=== PATIENT | female | born 1935 | race Caucasian/White ===

== ENCOUNTER 2020-10-27 02:07 | Inpatient (IN) ==
[2020-10-27 03:07] LABS: BUN/Creatinine Ratio 28 (6-26); Blood Urea Nitrogen 54 mg/dL (8-23); Calcium 9.3 mg/dL (8.6-10.3); Carbon Dioxide 28 mEq/L (23-29); Chloride 100 mEq/L (98-107); Glucose 104 mg/dL (70-105); Osmolality,Calculated 301 (280-300); Potassium 5.5 mEq/L (3.5-5.1); Sodium 138 mEq/L (136-145); eGFR For African Americans 30 (> 60); eGFR For Non-African Americans 25 (> 60)
[2020-10-27 03:08] LABS: Troponin I < 0.03 ng/mL (< 0.04)
[2020-10-27 03:36] LABS: Basophils % 0.5 %; Eosinophils # 0.4 K/mcL (0.0-0.6); Eosinophils % 4.4 %; Hematocrit 31.6 % (35.3-44.9); Hemoglobin 10.1 g/dL (11.5-15.4); Immature Granulocytes % 0.2 % (0-4); Lymphocytes # 1.2 K/mcL (0.6-4.6); Lymphocytes % 14.2 %; Mean Corpuscular Hemoglobin 29.1 pg (28.0-33.3); Mean Corpuscular Volume 91.1 fL (83.0-100.0); Mean Platelet Volume 10.7 fL (9.4-12.4); Monocytes # 0.9 K/mcL (0.0-1.3); Monocytes % 11.4 %; Neutrophils # 5.7 K/mcL (1.6-8.9); Platelet Count 179 K/mcL (140-400); Red Blood Count 3.47 M/mcL (3.82-4.97); Red Cell Distribution Width 13.8 % (11.5-14.5); Segmented Neutrophils % 69.3 %; White Blood Count 8.2 K/mcL (4.3-11.1)
[2020-10-27] MEDS ORDERED: *HR* Dextrose 50 % in Water (Vial) 50 ML VIAL IVP ONE (04:06)
[2020-10-27] MEDS ORDERED: Insulin Regular, Human 100 UNIT/ML SUBQ ONE (04:07)
[2020-10-27] MEDS ORDERED: Calcium Gluconate 1gm/50mL 1 GM/50 ML BAG IVPB ONE (04:08)
[2020-10-27] MEDS ORDERED: 0.9 % Sodium Chloride 1,000 ML IVC ONE (04:08)
[2020-10-27] MEDS: Azithromycin 500 MG in 0.9 % Sodium Chloride 250 ML IVPB ONE ×2 (04:42→06:58)
[2020-10-27] MEDS: cefTRIAXone 1,000 MG in 0.9 % Sodium Chloride Mini Bag 100 ML IVPB ONE (04:43)
[2020-10-27] MEDS ORDERED: Naloxone 0.4 MG/ML INJ IVP PRN (06:27)
[2020-10-27] MEDS ORDERED: cefTRIAXone 1,000 MG in Water for inj. (sterile) 10 ML IVP SCH ×2 (08:00→09:00)
[2020-10-27] MEDS: Piperacillin/Tazobactam 3.375 GM in 0.9 % Sodium Chloride Mini Bag 100 ML IVPB SCH ×2 (09:06→17:22)
[2020-10-27 11:28] LABS: Calcium 8.9 mg/dL (8.6-10.3)
[2020-10-27] MEDS ORDERED: Acetaminophen 325 MG TABLET PO PRN (14:56)
[2020-10-27] MEDS ORDERED: E-Z-HD (BARIUM SULF) SUSPENSION PO ONE (15:09)
[2020-10-27] MEDS ORDERED: E-Z-PAQUE (BARIUM SULF) SUSP 1 BOTTLE PO ONE (15:09)
[2020-10-27] MEDS: Ipratropium/Albuterol Neb 3 ML IH SCH ×3 (15:38→23:21)
[2020-10-27] MEDS: Divalproex Sodium 125 MG Sprinkle Capsule (DR) PO SCH ×2 (16:07→20:28)
[2020-10-27] MEDS: Furosemide 40 MG TABLET PO SCH (16:08)
[2020-10-27] MEDS: hydrOXYzine pamoate 25 MG CAPSULE PO SCH (20:27)
[2020-10-28] MEDS: Piperacillin/Tazobactam 3.375 GM in 0.9 % Sodium Chloride Mini Bag 100 ML IVPB SCH ×3 (01:11→17:10)
[2020-10-28] MEDS: Ipratropium/Albuterol Neb 3 ML IH SCH ×6 (03:52→23:24)
[2020-10-28 06:44] LABS: Calcium 8.8 mg/dL (8.6-10.3)
[2020-10-28 06:45] LABS: Basophils % 0.3 %; Eosinophils % 0.2 %; Hematocrit 27.1 % (35.3-44.9); Immature Granulocytes % 0.4 % (0-4); Lymphocytes # 1.7 K/mcL (0.6-4.6); Lymphocytes % 18.9 %; Mean Corpuscular Hemoglobin 28.2 pg (28.0-33.3); Mean Corpuscular Volume 90.9 fL (83.0-100.0); Mean Platelet Volume 11.9 fL (9.4-12.4); Monocytes # 1.2 K/mcL (0.0-1.3); Monocytes % 12.8 %; Neutrophils # 6.1 K/mcL (1.6-8.9); Platelet Count 125 K/mcL (140-400); Red Blood Count 2.98 M/mcL (3.82-4.97); Red Cell Distribution Width 14.2 % (11.5-14.5); Segmented Neutrophils % 67.4 %; White Blood Count 9.1 K/mcL (4.3-11.1)
[2020-10-28 06:46] LABS: Hemoglobin 8.4 g/dL (11.5-15.4)
[2020-10-28] MEDS ORDERED: Azithromycin 500 MG in 0.9 % Sodium Chloride 250 ML IVPB SCH (07:00)
[2020-10-28] MEDS: cefTRIAXone 1,000 MG in 0.9 % Sodium Chloride Mini Bag 100 ML IVPB ONE (07:27)
[2020-10-28] MEDS: Aspirin Enteric Coated 81 MG Tablet PO SCH (08:11)
[2020-10-28] MEDS: hydrOXYzine pamoate 25 MG CAPSULE PO SCH ×2 (08:11→22:34)
[2020-10-28] MEDS: amLODIPine 5 MG TABLET PO SCH (08:11)
[2020-10-28] MEDS: Furosemide 40 MG TABLET PO SCH (08:12)
[2020-10-28] MEDS: Folic Acid 1 MG TABLET PO SCH (08:12)
[2020-10-28] MEDS: Divalproex Sodium 125 MG Sprinkle Capsule (DR) PO SCH ×3 (08:12→22:34)
[2020-10-28] MEDS: MOM Conc 10 ML UD.LIQ PO SCH (08:13)
[2020-10-28] MEDS: Fluticasone Propionate Nasal 50 MCG/SPRAY BOTTLE NS SCH (08:13)
[2020-10-28] MEDS ORDERED: cefTRIAXone 1,000 MG in 0.9 % Sodium Chloride Mini Bag 100 ML IVPB SCH (09:00)
[2020-10-28 12:09] LABS: Adenovirus Not Detected (Not Detect); Bordetella Pertussis Not Detected (Not Detect); Chlamydophila pneumoniae Not Detected (Not Detect); Coronavirus 229E Not Detected (Not Detect); Coronavirus HKU1 Not Detected (Not Detect); Coronavirus NL63 Not Detected (Not Detect); Coronavirus OC43 Not Detected (Not Detect); Human Metapneumovirus Not Detected (Not Detect); Human Rhinovirus/Enterovirus DETECTED (Not Detect); Influenza A Subtype 2009 H1 Not Detected (Not Detect); Influenza B Not Detected (Not Detect); Mycoplasma pneumoniae Not Detected (Not Detect); Parainfluenza Virus 1 Not Detected (Not Detect); Parainfluenza Virus 2 Not Detected (Not Detect); Parainfluenza Virus 3 Not Detected (Not Detect); Parainfluenza Virus 4 Not Detected (Not Detect); Respiratory Syncytial Virus Not Detected (Not Detect); SARS-CoV-2 Not Detected (Not Detect)
[2020-10-28 12:21] LABS: Hematocrit 27.6 % (35.3-44.9); Hemoglobin 8.8 g/dL (11.5-15.4)
[2020-10-29] MEDS: Piperacillin/Tazobactam 3.375 GM in 0.9 % Sodium Chloride Mini Bag 100 ML IVPB SCH ×3 (01:33→21:25)
[2020-10-29 02:04] LABS: Basophils % 0.4 %; Eosinophils # 0.2 K/mcL (0.0-0.6); Eosinophils % 2.2 %; Hematocrit 28.5 % (35.3-44.9); Hemoglobin 8.6 g/dL (11.5-15.4); Immature Granulocytes % 0.3 % (0-4); Lymphocytes # 1.7 K/mcL (0.6-4.6); Lymphocytes % 22.5 %; Mean Corpuscular HGB Conc 30.2 g/dL (31.6-35.5); Mean Corpuscular Hemoglobin 27.8 pg (28.0-33.3); Mean Corpuscular Volume 92.2 fL (83.0-100.0); Mean Platelet Volume 10.8 fL (9.4-12.4); Monocytes # 0.9 K/mcL (0.0-1.3); Monocytes % 11.4 %; Neutrophils # 4.7 K/mcL (1.6-8.9); Platelet Count 139 K/mcL (140-400); Red Blood Count 3.09 M/mcL (3.82-4.97); Red Cell Distribution Width 14.6 % (11.5-14.5); Segmented Neutrophils % 63.2 %; White Blood Count 7.4 K/mcL (4.3-11.1)
[2020-10-29 02:05] LABS: VBG HCO3 27 mEq/L (21-27); VBG PCO2 41 mmHg (41-51); VBG PH 7.43 pH Units (7.32-7.42); VBG PO2 65 mmHg (25-50)
[2020-10-29 02:22] LABS: Calcium 8.9 mg/dL (8.6-10.3); Potassium 4.3 mEq/L (3.5-5.1)
[2020-10-29] MEDS: Ipratropium/Albuterol Neb 3 ML IH SCH ×6 (03:59→23:03)
[2020-10-29] MEDS: Divalproex Sodium 125 MG Sprinkle Capsule (DR) PO SCH ×3 (08:41→21:25)
[2020-10-29] MEDS: MOM Conc 10 ML UD.LIQ PO SCH (08:41)
[2020-10-29] MEDS: Aspirin Enteric Coated 81 MG Tablet PO SCH (08:42)
[2020-10-29] MEDS: amLODIPine 5 MG TABLET PO SCH (08:42)
[2020-10-29] MEDS: hydrOXYzine pamoate 25 MG CAPSULE PO SCH ×2 (08:42→21:25)
[2020-10-29] MEDS: Folic Acid 1 MG TABLET PO SCH (08:42)
[2020-10-29] MEDS: Furosemide 40 MG TABLET PO SCH (08:42)
[2020-10-29] MEDS: Fluticasone Propionate Nasal 50 MCG/SPRAY BOTTLE NS SCH (08:44)
[2020-10-29 09:25] LABS: Bilirubin,Urine Negative (Negative); Blood,Urine Negative (Negative); Clarity,Urine Clear (Clear); Color,Urine Light-Yellow (Yellow); Glucose,Urine (UA) Normal (Normal); Ketones,Urine Negative (Negative); Leukocyte Esterase,Urine Negative (Negative); Nitrite,Urine Negative (Negative); Protein,Urine Negative (Neg-Trace); Specific Gravity,Urine 1.017 (1.010-1.025); Urobilinogen,Urine Normal (Normal)
[2020-10-30] MEDS: Ipratropium/Albuterol Neb 3 ML IH SCH ×6 (04:06→23:41)
[2020-10-30 07:21] LABS: Basophils % 0.3 %; Eosinophils # 0.4 K/mcL (0.0-0.6); Eosinophils % 6.6 %; Hematocrit 27.9 % (35.3-44.9); Hemoglobin 8.6 g/dL (11.5-15.4); Immature Granulocytes % 0.3 % (0-4); Lymphocytes # 1.6 K/mcL (0.6-4.6); Lymphocytes % 25.1 %; Mean Corpuscular HGB Conc 30.8 g/dL (31.6-35.5); Mean Corpuscular Hemoglobin 28.6 pg (28.0-33.3); Mean Corpuscular Volume 92.7 fL (83.0-100.0); Mean Platelet Volume 11.2 fL (9.4-12.4); Monocytes # 0.5 K/mcL (0.0-1.3); Monocytes % 8.4 %; Neutrophils # 3.8 K/mcL (1.6-8.9); Platelet Count 149 K/mcL (140-400); Red Blood Count 3.01 M/mcL (3.82-4.97); Red Cell Distribution Width 14.4 % (11.5-14.5); Segmented Neutrophils % 59.3 %; White Blood Count 6.4 K/mcL (4.3-11.1)
[2020-10-30 07:33] LABS: Calcium 8.8 mg/dL (8.6-10.3); Potassium 4.1 mEq/L (3.5-5.1)
[2020-10-30] MEDS ORDERED: Ringers Solution, Lactated 500 ML IVC SCH (07:45)
[2020-10-30] MEDS: Divalproex Sodium 125 MG Sprinkle Capsule (DR) PO SCH ×3 (09:30→20:17)
[2020-10-30] MEDS: Aspirin Enteric Coated 81 MG Tablet PO SCH (09:30)
[2020-10-30] MEDS: MOM Conc 10 ML UD.LIQ PO SCH (09:30)
[2020-10-30] MEDS: Folic Acid 1 MG TABLET PO SCH (09:31)
[2020-10-30] MEDS: Piperacillin/Tazobactam 3.375 GM in 0.9 % Sodium Chloride Mini Bag 100 ML IVPB SCH ×2 (09:31→20:17)
[2020-10-30] MEDS: amLODIPine 5 MG TABLET PO SCH (09:31)
[2020-10-30] MEDS: hydrOXYzine pamoate 25 MG CAPSULE PO SCH ×2 (09:31→20:17)
[2020-10-30] MEDS: Fluticasone Propionate Nasal 50 MCG/SPRAY BOTTLE NS SCH (09:32)
[2020-10-30 15:38] LABS: Protein/Creatinine Ratio,Urine 0.26 mg/mg (0.00-0.20); Sodium, Urine 92.2 mEq/L
[2020-10-31 02:43] LABS: Calcium 8.9 mg/dL (8.6-10.3); Potassium 4.7 mEq/L (3.5-5.1)
[2020-10-31] MEDS: Ipratropium/Albuterol Neb 3 ML IH SCH ×3 (04:11→11:20)
[2020-10-31 08:15] VITALS: BP 141/55
[2020-10-31] MEDS ORDERED: predniSONE 20 MG TABLET PO SCH (09:00)
[2020-10-31] MEDS ORDERED: Furosemide 40 MG TABLET PO ONE (09:02)
[2020-10-31] MEDS ORDERED: Amoxicillin/Clavulanate 500 MG TABLET PO SCH (09:32)
[2020-10-31] MEDS: Aspirin Enteric Coated 81 MG Tablet PO SCH (10:13)
[2020-10-31] MEDS: Divalproex Sodium 125 MG Sprinkle Capsule (DR) PO SCH (10:13)
[2020-10-31] MEDS: Folic Acid 1 MG TABLET PO SCH (10:14)
[2020-10-31] MEDS: hydrOXYzine pamoate 25 MG CAPSULE PO SCH (10:14)
[2020-10-31] MEDS: amLODIPine 5 MG TABLET PO SCH (10:14)
[2020-10-31] MEDS: MOM Conc 10 ML UD.LIQ PO SCH (10:15)
[2020-10-31] MEDS: Fluticasone Propionate Nasal 50 MCG/SPRAY BOTTLE NS SCH (10:15)
== END 2020-10-31 11:56 | disposition home or self-care (01) | DRG 178 ==
LOC: 2ANU 02:07 → EMEROOARM 02:07 → SUATTDRO 04:55 → 2ANU 05:18
PROVIDERS: ADMIT Student in an Organized Health Care Education/Training Program; ATTEND Internal Medicine

== ENCOUNTER 2021-04-02 19:52 | Inpatient (IN) ==
[2021-04-02] MEDS ORDERED: Isovue-370 500 ML BOTTLE IVP ONE (21:13)
[2021-04-02 21:27] LABS: Basophils % 0.1 %; Immature Platelets 8.1 % (1.1-6.1)
[2021-04-02 21:40] LABS: INR 1.4; Prothrombin Time 15.1 Seconds (9.4-12.1)
[2021-04-02 21:45] LABS: Lymphocytes % 5.4 %; Red Cell Distribution Width 14.2 % (11.5-14.5)
[2021-04-02 21:46] LABS: Hematocrit 30.8 % (35.3-44.9); Hemoglobin 10.2 g/dL (11.5-15.4); Immature Granulocytes % 4.7 % (0-4); Lymphocytes # 1.7 K/mcL (0.6-4.6); Mean Corpuscular HGB Conc 33.1 g/dL (31.6-35.5); Mean Corpuscular Hemoglobin 30.3 pg (28.0-33.3); Mean Corpuscular Volume 91.4 fL (83.0-100.0); Mean Platelet Volume 11.4 fL (9.4-12.4); Monocytes # 2.8 K/mcL (0.0-1.3); Neutrophils # 24.8 K/mcL (1.6-8.9); Platelet Count 231 K/mcL (140-400); Red Blood Count 3.37 M/mcL (3.82-4.97); Segmented Neutrophils % 80.8 %
[2021-04-02 21:50] LABS: White Blood Count 30.7 K/mcL (4.3-11.1)
[2021-04-02 21:52] LABS: Platelet Estimate Normal (Normal)
[2021-04-02 22:21] LABS: Alanine Aminotransferase 18 Units/L (7-52); Albumin 3.1 g/dL (3.5-5.7); Alkaline Phosphatase 70 Units/L (34-104); Aspartate Amino Transferase 19 Units/L (13-39); BUN/Creatinine Ratio 23 (6-26); Bilirubin,Direct 0.1 mg/dL (0.0-0.2); Bilirubin,Indirect 0.3 mg/dL (0.0-1.0); Bilirubin,Total 0.4 mg/dL (0.3-1.0); Blood Urea Nitrogen 56 mg/dL (8-23); Carbon Dioxide 32 mEq/L (23-29); Chloride 99 mEq/L (98-107); Ethanol < 10 mg/dL (Less than 10); Globulin 3.2 g/dL (2.4-3.5); Glucose 129 mg/dL (70-105); Osmolality,Calculated 309 (280-300); Potassium 4.2 mEq/L (3.5-5.1); Sodium 141 mEq/L (136-145); Total Protein 6.3 g/dL (6.4-8.9); eGFR For African Americans 23 (> 60); eGFR For Non-African Americans 19 (> 60)
[2021-04-02 22:22] LABS: Troponin I 0.06 ng/mL (< 0.04)
[2021-04-02 22:23] LABS: Adenovirus Not Detected (Not Detect); Bordetella Pertussis Not Detected (Not Detect); Chlamydophila pneumoniae Not Detected (Not Detect); Coronavirus 229E Not Detected (Not Detect); Coronavirus HKU1 Not Detected (Not Detect); Coronavirus NL63 Not Detected (Not Detect); Coronavirus OC43 Not Detected (Not Detect); Human Metapneumovirus Not Detected (Not Detect); Human Rhinovirus/Enterovirus Not Detected (Not Detect); Influenza A Subtype 2009 H1 Not Detected (Not Detect); Influenza B Not Detected (Not Detect); Mycoplasma pneumoniae Not Detected (Not Detect); Parainfluenza Virus 1 Not Detected (Not Detect); Parainfluenza Virus 2 Not Detected (Not Detect); Parainfluenza Virus 3 Not Detected (Not Detect); Parainfluenza Virus 4 Not Detected (Not Detect); Respiratory Syncytial Virus Not Detected (Not Detect); SARS-CoV-2 Not Detected (Not Detect)
[2021-04-02 22:47] LABS: Amphetamine Screen,Urine Negative ng/mL (Cutoff=1000); Barbiturate Screen,Urine Negative ng/mL (Cutoff=200); Benzodiazepines Screen,Urine Negative ng/mL (Cutoff=200); Cannabinoid Screen,Urine Negative ng/mL (Cutoff = 50); Cocaine Screen,Urine Negative ng/mL (Cutoff= 300); Opiate Screen,Urine Negative ng/mL (Cutoff=300); Phencyclidine Screen,Urine Negative ng/mL (Cutoff=25)
[2021-04-02 23:07] LABS: Bacteria,Urine Few per hpf (None-Few); Bilirubin,Urine Negative (Negative); Blood,Urine Negative (Negative); Clarity,Urine Turbid (Clear); Color,Urine Yellow (Yellow); Glucose,Urine (UA) Normal (Normal); Hyaline Casts,Urine Many per lpf (None Seen); Ketones,Urine Negative (Negative); Leukocyte Esterase,Urine Small (Negative); Mucus,Urine Few per lpf (None-Few); Nitrite,Urine Negative (Negative); Protein,Urine 50 mg/dL (Neg-Trace); RBC,Urine 0-3 per hpf (0-3); Specific Gravity,Urine 1.023 (1.010-1.025); Squamous Epithelial Cell,Urine Few per hpf (None-Few)
[2021-04-03] MEDS ORDERED: cefTRIAXone 1,000 MG in 0.9 % Sodium Chloride Mini Bag 100 ML IVPB ONE (00:05)
[2021-04-03] MEDS ORDERED: Piperacillin/Tazobactam 3.375 GM in 0.9 % Sodium Chloride Mini Bag 100 ML IVPB ONE (00:07)
[2021-04-03] MEDS ORDERED: 0.9 % Sodium Chloride 1,000 ML IVC ONE ×2 (02:22→05:10)
[2021-04-03] MEDS ORDERED: Acetaminophen 325 MG TABLET PO ONE (02:57)
[2021-04-03] MEDS ORDERED: Ringers Solution, Lactated 500 ML IVC ONE (04:15)
[2021-04-03] MEDS ORDERED: Naloxone 0.4 MG/ML INJ IVP PRN (04:25)
[2021-04-03] MEDS ORDERED: Ondansetron ODT 4 MG TAB.RAPDIS SL PRN (04:25)
[2021-04-03] MEDS ORDERED: Piperacillin/Tazobactam 4.5 GM in 0.9 % Sodium Chloride Mini Bag 100 ML IVPB SCH (05:30)
[2021-04-03] MEDS: *HR* Heparin 5,000 UNIT/ML VIAL SQ SCH ×2 (06:04→17:45)
[2021-04-03] MEDS ORDERED: Albumin 25% 12.5gm/50mL 12.5 GM/50 ML IV.SOLN IVPB ONE (06:15)
[2021-04-03 06:20] LABS: Basophils % 0.1 %; Hematocrit 27.2 % (35.3-44.9); Immature Granulocytes % 2.9 % (0-4); Lymphocytes % 4.6 %; Mean Corpuscular HGB Conc 30.5 g/dL (31.6-35.5); Mean Corpuscular Hemoglobin 28.3 pg (28.0-33.3); Mean Corpuscular Volume 92.8 fL (83.0-100.0); Mean Platelet Volume 11.4 fL (9.4-12.4); Monocytes # 1.9 K/mcL (0.0-1.3); Neutrophils # 17.7 K/mcL (1.6-8.9); Platelet Count 182 K/mcL (140-400); Red Blood Count 2.93 M/mcL (3.82-4.97); Red Cell Distribution Width 14.1 % (11.5-14.5); Segmented Neutrophils % 83.4 %; White Blood Count 21.2 K/mcL (4.3-11.1)
[2021-04-03 06:22] LABS: Hemoglobin 8.3 g/dL (11.5-15.4)
[2021-04-03 06:42] LABS: Chol/HDL Ratio 2.2 (0-4.9)
[2021-04-03 06:43] LABS: Creatinine,Urine 154 mg/dL
[2021-04-03 06:48] LABS: Albumin 2.8 g/dL (3.5-5.7); Bilirubin,Total 0.3 mg/dL (0.3-1.0); Calcium 8.5 mg/dL (8.6-10.3); Globulin 2.7 g/dL (2.4-3.5); Potassium 4.1 mEq/L (3.5-5.1); Total Protein 5.5 g/dL (6.4-8.9)
[2021-04-03 06:57] LABS: Thyroid Stimulating Hormone 2.091 mcIU/mL (0.340-5.600)
[2021-04-03 07:11] LABS: Estimated Average Glucose 94 mg/dl; Hemoglobin A1C 4.9 %
[2021-04-03] MEDS ORDERED: *HR* Dextrose 50 % in Water (Syg) 50 ML SYRINGE IVP PRN (07:25)
[2021-04-03] MEDS ORDERED: D5% in Water 1,000 ML IVC PRN (07:25)
[2021-04-03] MEDS ORDERED: Dextrose Gel 15 GM/37.5 ML TUBE PO PRN ×2 (07:25)
[2021-04-03] MEDS ORDERED: Piperacillin/Tazobactam 3.375 GM in 0.9 % Sodium Chloride Mini Bag 100 ML IVPB SCH (08:00)
[2021-04-03] MEDS: Pantoprazole 40 MG VIAL IVP SCH (08:02)
[2021-04-03] MEDS: 0.9 % Sodium Chloride 1,000 ML IVC SCH ×2 (09:12→19:21)
[2021-04-03] MEDS: Insulin LISPRO 300 UNITS/3 ML VIAL SUBQ SCH ×3 (13:45→23:29)
[2021-04-03] MEDS: Piperacillin/Tazobactam 3.375 GM in 0.9 % Sodium Chloride Mini Bag 100 ML IVPB SCH ×2 (13:48→23:30)
[2021-04-04] MEDS: Insulin LISPRO 300 UNITS/3 ML VIAL SUBQ SCH ×3 (05:15→20:21)
[2021-04-04] MEDS: *HR* Heparin 5,000 UNIT/ML VIAL SQ SCH ×2 (06:32→20:23)
[2021-04-04] MEDS: Pantoprazole 40 MG VIAL IVP SCH (08:14)
[2021-04-04] MEDS ORDERED: D5% in 0.9% NACL 1,000 ML IVC SCH (08:15)
[2021-04-04 08:44] LABS: Basophils % 0.1 %; Hematocrit 28.4 % (35.3-44.9); Hemoglobin 8.8 g/dL (11.5-15.4); Lymphocytes # 0.7 K/mcL (0.6-4.6); Lymphocytes % 3.9 %; Mean Corpuscular Hemoglobin 28.9 pg (28.0-33.3); Mean Corpuscular Volume 93.1 fL (83.0-100.0); Mean Platelet Volume 10.9 fL (9.4-12.4); Monocytes % 6.2 %; Neutrophils # 14.9 K/mcL (1.6-8.9); Platelet Count 196 K/mcL (140-400); Red Blood Count 3.05 M/mcL (3.82-4.97); Red Cell Distribution Width 14.1 % (11.5-14.5); Segmented Neutrophils % 88.8 %; White Blood Count 16.7 K/mcL (4.3-11.1)
[2021-04-04 09:03] LABS: Calcium 9.1 mg/dL (8.6-10.3); Magnesium 2.1 mg/dL (1.6-2.6); Phosphorous 3.5 mg/dL (2.7-4.5); Potassium 3.8 mEq/L (3.5-5.1)
[2021-04-04] MEDS ORDERED: Ipratropium/Albuterol Neb 3 ML IH PRN (10:45)
[2021-04-04] MEDS: Piperacillin/Tazobactam 3.375 GM in 0.9 % Sodium Chloride Mini Bag 100 ML IVPB SCH (13:25)
[2021-04-04] MEDS ORDERED: Perflutren Lipid Microsphere 1.3 ML in 0.9 % Sodium Chloride 8.7 ML IVP PRN (14:31)
[2021-04-04] MEDS: Divalproex Sodium 125 MG Sprinkle Capsule (DR) PO SCH ×2 (15:27→20:23)
[2021-04-05] MEDS: Insulin LISPRO 300 UNITS/3 ML VIAL SUBQ SCH ×3 (00:18→23:24)
[2021-04-05] MEDS: Piperacillin/Tazobactam 3.375 GM in 0.9 % Sodium Chloride Mini Bag 100 ML IVPB SCH (00:19)
[2021-04-05 02:24] LABS: Basophils % 0.2 %; Eosinophils % 0.1 %; Hematocrit 28.9 % (35.3-44.9); Hemoglobin 9.1 g/dL (11.5-15.4); Immature Granulocytes % 1.3 % (0-4); Lymphocytes # 0.9 K/mcL (0.6-4.6); Lymphocytes % 6.1 %; Mean Corpuscular HGB Conc 31.5 g/dL (31.6-35.5); Mean Platelet Volume 10.5 fL (9.4-12.4); Monocytes % 6.9 %; Neutrophils # 12.8 K/mcL (1.6-8.9); Platelet Count 229 K/mcL (140-400); Red Blood Count 3.14 M/mcL (3.82-4.97); Red Cell Distribution Width 14.3 % (11.5-14.5); Segmented Neutrophils % 85.4 %
[2021-04-05 02:43] LABS: Calcium 8.9 mg/dL (8.6-10.3); Phosphorous 2.2 mg/dL (2.7-4.5); Potassium 3.4 mEq/L (3.5-5.1)
[2021-04-05] MEDS: *HR* Heparin 5,000 UNIT/ML VIAL SQ SCH (05:31)
[2021-04-05] MEDS ORDERED: D5% in Water 1,000 ML IVC SCH (08:00)
[2021-04-05] MEDS ORDERED: Insulin LISPRO 300 UNITS/3 ML VIAL SUBQ SCH (08:15)
[2021-04-05] MEDS: Divalproex Sodium 125 MG Sprinkle Capsule (DR) PO SCH ×3 (08:47→23:24)
[2021-04-05] MEDS: Pantoprazole 40 MG VIAL IVP SCH (08:49)
[2021-04-05] MEDS ORDERED: Piperacillin/Tazobactam 3.375 GM in 0.9 % Sodium Chloride Mini Bag 100 ML IVPB SCH (10:00)
[2021-04-05] MEDS ORDERED: *HR* HYDROmorphone PF 0.5 MG/0.5 ML SYRINGE IVP PRN (11:19)
[2021-04-05] MEDS ORDERED: *HR* FentaNYL (PF) 100 MCG/2 ML VIAL IVP PRN (11:19)
[2021-04-05] MEDS ORDERED: Ondansetron 4 MG/2 ML VIAL IVP PRN (11:19)
[2021-04-05] MEDS ORDERED: Acetaminophen 325 MG TABLET PO PRN ×2 (13:03→18:49)
[2021-04-05] MEDS ORDERED: amLODIPine 5 MG TABLET PO SCH (13:15)
[2021-04-05] MEDS ORDERED: Heparin 1,000 UNITS/500 mL 500 ML ONE (14:37)
[2021-04-05] MEDS ORDERED: *HR* FentaNYL (PF) 100 MCG/2 ML VIAL ONE ×2 (14:37→16:31)
[2021-04-05] MEDS ORDERED: *HR* Propofol 200 MG/20 ML VIAL IVP ONE (14:38)
[2021-04-05] MEDS ORDERED: Lidocaine -MPF 2% 5 ML VIAL ONE (14:43)
[2021-04-05] MEDS ORDERED: *HR* Rocuronium Bromide 50 MG/5 ML VIAL ONE (14:43)
[2021-04-05] MEDS ORDERED: Lidocaine HCL 4 ML Topical Solution (Laryng-O-Jet Kit Sterile Pak) TP ONE (14:44)
[2021-04-05] MEDS ORDERED: Ondansetron 4 MG/2 ML VIAL ONE (15:31)
[2021-04-05] MEDS ORDERED: Sugammadex Sodium 200 MG/2 ML VIAL IV ONE (17:13)
[2021-04-05] MEDS ORDERED: *HR* Dextrose 50 % in Water (Syg) 50 ML SYRINGE IVP PRN (18:49)
[2021-04-05] MEDS ORDERED: Perflutren Lipid Microsphere 1.3 ML in 0.9 % Sodium Chloride 8.7 ML IVP PRN (18:49)
[2021-04-05] MEDS ORDERED: Naloxone 0.4 MG/ML INJ IVP PRN (18:49)
[2021-04-05] MEDS ORDERED: Dextrose Gel 15 GM/37.5 ML TUBE PO PRN ×2 (18:49)
[2021-04-05] MEDS ORDERED: Ipratropium/Albuterol Neb 3 ML IH PRN (18:49)
[2021-04-05] MEDS ORDERED: Ondansetron ODT 4 MG TAB.RAPDIS SL PRN (18:49)
[2021-04-05] MEDS ORDERED: D5% in Water 1,000 ML IVC PRN (18:49)
[2021-04-05] MEDS ORDERED: hydrOXYzine pamoate 25 MG CAPSULE PO SCH (21:00)
[2021-04-05] MEDS ORDERED: Cholecalciferol (D-3) 1,000 UNIT (25MCG) TABLET PO SCH (21:00)
[2021-04-05] MEDS: Cholecalciferol (D-3) 1,000 UNIT (25MCG) TABLET PO SCH (22:59)
[2021-04-05] MEDS: hydrOXYzine pamoate 25 MG CAPSULE PO SCH (22:59)
[2021-04-05] MEDS: D5% in Water 1,000 ML IVC SCH (23:22)
[2021-04-06] MEDS: hydrOXYzine pamoate 25 MG CAPSULE PO SCH ×3 (00:41→20:32)
[2021-04-06] MEDS: Cholecalciferol (D-3) 1,000 UNIT (25MCG) TABLET PO SCH ×3 (00:42→20:33)
[2021-04-06 03:06] LABS: Basophils # 0.1 K/mcL (0.0-0.2); Basophils % 0.4 %; Hematocrit 27.9 % (35.3-44.9); Hemoglobin 8.8 g/dL (11.5-15.4); Immature Granulocytes % 2.3 % (0-4); Lymphocytes % 8.5 %; Mean Corpuscular HGB Conc 31.5 g/dL (31.6-35.5); Mean Corpuscular Volume 92.1 fL (83.0-100.0); Mean Platelet Volume 10.2 fL (9.4-12.4); Monocytes # 0.8 K/mcL (0.0-1.3); Monocytes % 6.2 %; Platelet Count 275 K/mcL (140-400); Red Blood Count 3.03 M/mcL (3.82-4.97); Red Cell Distribution Width 14.5 % (11.5-14.5); Segmented Neutrophils % 82.6 %; White Blood Count 12.1 K/mcL (4.3-11.1)
[2021-04-06 03:20] LABS: Albumin 2.7 g/dL (3.5-5.7); Albumin/Globulin Ratio 0.9 (1.1-2.2); Bilirubin,Total 0.3 mg/dL (0.3-1.0); Calcium 8.9 mg/dL (8.6-10.3); Globulin 3.1 g/dL (2.4-3.5); Potassium 3.5 mEq/L (3.5-5.1); Total Protein 5.8 g/dL (6.4-8.9)
[2021-04-06] MEDS: *HR* Heparin 5,000 UNIT/ML VIAL SQ SCH ×2 (06:29→16:39)
[2021-04-06] MEDS: Piperacillin/Tazobactam 3.375 GM in 0.9 % Sodium Chloride Mini Bag 100 ML IVPB SCH ×3 (07:08→17:18)
[2021-04-06] MEDS: Insulin LISPRO 300 UNITS/3 ML VIAL SUBQ SCH ×6 (07:50→20:33)
[2021-04-06] MEDS ORDERED: BENAZEPRIL HCL 20 MG PO SCH (09:00)
[2021-04-06] MEDS ORDERED: Fluticasone Propionate Nasal 50 MCG/SPRAY BOTTLE NS SCH (09:00)
[2021-04-06] MEDS ORDERED: Pantoprazole 40 MG VIAL IVP SCH (09:00)
[2021-04-06] MEDS ORDERED: Folic Acid 1 MG TABLET PO SCH (09:00)
[2021-04-06] MEDS ORDERED: Aspirin Enteric Coated 81 MG Tablet PO SCH (09:00)
[2021-04-06] MEDS: Aspirin Enteric Coated 81 MG Tablet PO SCH (09:03)
[2021-04-06] MEDS: Divalproex Sodium 125 MG Sprinkle Capsule (DR) PO SCH ×3 (09:04→20:32)
[2021-04-06] MEDS: amLODIPine 5 MG TABLET PO SCH (09:04)
[2021-04-06] MEDS: Fluticasone Propionate Nasal 50 MCG/SPRAY BOTTLE NS SCH (09:55)
[2021-04-06] MEDS: D5% in Water 1,000 ML IVC SCH (13:07)
[2021-04-07] MEDS: Insulin LISPRO 300 UNITS/3 ML VIAL SUBQ SCH ×6 (00:34→21:56)
[2021-04-07] MEDS: D5% in Water 1,000 ML IVC SCH ×2 (00:42→14:14)
[2021-04-07] MEDS: Piperacillin/Tazobactam 3.375 GM in 0.9 % Sodium Chloride Mini Bag 100 ML IVPB SCH ×3 (02:29→18:33)
[2021-04-07 06:13] LABS: Basophils # 0.1 K/mcL (0.0-0.2); Basophils % 0.4 %; Eosinophils # 0.7 K/mcL (0.0-0.6); Eosinophils % 6.4 %; Hematocrit 25.2 % (35.3-44.9); Hemoglobin 7.8 g/dL (11.5-15.4); Immature Granulocytes % 4.4 % (0-4); Lymphocytes # 2.4 K/mcL (0.6-4.6); Mean Corpuscular Hemoglobin 28.5 pg (28.0-33.3); Mean Platelet Volume 10.1 fL (9.4-12.4); Monocytes % 8.3 %; Neutrophils # 6.8 K/mcL (1.6-8.9); Nucleated Red Blood Cells 0.2 /100 WBC (0); Platelet Count 271 K/mcL (140-400); Red Blood Count 2.74 M/mcL (3.82-4.97); Red Cell Distribution Width 14.8 % (11.5-14.5); Segmented Neutrophils % 59.5 %; White Blood Count 11.5 K/mcL (4.3-11.1)
[2021-04-07] MEDS: *HR* Heparin 5,000 UNIT/ML VIAL SQ SCH ×2 (06:14→18:34)
[2021-04-07 06:15] LABS: Albumin 2.4 g/dL (3.5-5.7); Albumin/Globulin Ratio 0.9 (1.1-2.2); Bilirubin,Total 0.3 mg/dL (0.3-1.0); Calcium 8.2 mg/dL (8.6-10.3); Globulin 2.7 g/dL (2.4-3.5); Potassium 3.3 mEq/L (3.5-5.1); Total Protein 5.1 g/dL (6.4-8.9)
[2021-04-07] MEDS ORDERED: Potassium Chloride Elixir 20 MEQ/15 ML UDC PO ONE (07:23)
[2021-04-07] MEDS: amLODIPine 5 MG TABLET PO SCH (10:45)
[2021-04-07] MEDS: Cholecalciferol (D-3) 1,000 UNIT (25MCG) TABLET PO SCH ×2 (10:46→20:56)
[2021-04-07] MEDS: Aspirin Enteric Coated 81 MG Tablet PO SCH (10:46)
[2021-04-07] MEDS: hydrOXYzine pamoate 25 MG CAPSULE PO SCH ×2 (10:46→20:56)
[2021-04-07] MEDS: Divalproex Sodium 125 MG Sprinkle Capsule (DR) PO SCH ×3 (10:46→20:58)
[2021-04-07] MEDS: Fluticasone Propionate Nasal 50 MCG/SPRAY BOTTLE NS SCH (10:47)
[2021-04-08] MEDS: Piperacillin/Tazobactam 3.375 GM in 0.9 % Sodium Chloride Mini Bag 100 ML IVPB SCH ×2 (01:49→09:21)
[2021-04-08] MEDS: *HR* Heparin 5,000 UNIT/ML VIAL SQ SCH (04:58)
[2021-04-08 06:32] LABS: Hematocrit 24.3 % (35.3-44.9); Hemoglobin 7.7 g/dL (11.5-15.4); Mean Corpuscular HGB Conc 31.7 g/dL (31.6-35.5); Mean Corpuscular Hemoglobin 28.9 pg (28.0-33.3); Mean Corpuscular Volume 91.4 fL (83.0-100.0); Platelet Count 278 K/mcL (140-400); Red Blood Count 2.66 M/mcL (3.82-4.97); Red Cell Distribution Width 14.5 % (11.5-14.5); White Blood Count 10.3 K/mcL (4.3-11.1)
[2021-04-08 06:53] LABS: Calcium 8.1 mg/dL (8.6-10.3); Potassium 3.4 mEq/L (3.5-5.1)
[2021-04-08] MEDS: Insulin LISPRO 300 UNITS/3 ML VIAL SUBQ SCH ×4 (06:59→13:02)
[2021-04-08 07:40] LABS: Eosinophils # 0.9 K/mcL (0.0-0.6); Lymphocytes # 2.8 K/mcL (0.6-4.6); Monocytes # 0.4 K/mcL (0.0-1.3); Neutrophils # 6.2 K/mcL (1.6-8.9); Platelet Estimate Normal (Normal)
[2021-04-08] MEDS: hydrOXYzine pamoate 25 MG CAPSULE PO SCH (09:22)
[2021-04-08] MEDS: Cholecalciferol (D-3) 1,000 UNIT (25MCG) TABLET PO SCH (09:22)
[2021-04-08] MEDS: Divalproex Sodium 125 MG Sprinkle Capsule (DR) PO SCH (09:22)
[2021-04-08] MEDS: Aspirin Enteric Coated 81 MG Tablet PO SCH (09:23)
[2021-04-08] MEDS: amLODIPine 5 MG TABLET PO SCH (09:23)
[2021-04-08] MEDS: Fluticasone Propionate Nasal 50 MCG/SPRAY BOTTLE NS SCH (09:24)
[2021-04-08 11:40] VITALS: BP 165/75; PULSE 64; TEMP 97.7; O2SAT 96
== END 2021-04-08 16:58 | DRG 853 ==
LOC: 3NENU 19:52 → EMEROOARM 19:52 → SUATTDRO 04-03 03:59 → 3NENU 04-03 05:00 → SUATTDRO 04-04 12:13 → 3ANU 04-04 17:24
PROVIDERS: ADMIT Internal Medicine; ATTEND Family Medicine